=== PATIENT | male | born 1965 | race Caucasian/White ===

== ENCOUNTER → 2022-01-31 | Outpatient (CLI) | payer MEDICARE ==
[2022-01-31 13:32] LABS: African American GFR (CKD) >90 (>60 ml/min/1.73 sqM); Blood Urea Nitrogen 10 mg/dL (9-20); Non-African American GFR(CKD) 81 (>60 ml/min/1.73 sqM)
--- NOTE | 2022-01-31 15:31 | CT ---
EXAMINATION TYPE: CT abdomen pelvis w con DATE OF EXAM: 01/31/2022 COMPARISON: None. HISTORY: Prostate Cancer CT DLP: 1177 mGycm, Automated Exposure Control for Dose Reduction was Utilized. CONTRAST: CT scan of the abdomen and pelvis is performed without oral but with IV Contrast, patient injected wi th 70 mL of Isovue 300. FINDINGS: LUNG BASES: Mild bibasilar linear scarring. LIVER/GB: Somewhat contracted gallbladder. PANCREAS: No significant abnormality is seen. SPLEEN: No significant abnormality is seen. ADRENALS: No significant abnormality is seen. KIDNEYS: Subcentimeter lesion right kidney anteriorly upper and midpole level axial image 27 series 7 is too small to further characterize. Symmetric cortical medullary uptake and excretion is seen with out hydronephrosis seen bilaterally. BOWEL: Suboptimal evaluation without oral contrast. Low-lying cecum into the right pelvis. Normal-elsie earing appendix extends inferiorly from the cecum. No suspicious small or large bowel dilatation. Red undant poorly distended sigmoid colon is noted. PROSTATE/SEMINAL VESICLES: Prostate gland mildly enlarged in size bulging on bladder base. Seminal ve sicles appear within normal limits. No suspicious adjacent adenopathy. Occasional scattered tiny pelv ic phlebolith. Bladder shows mild wall thickening. LYMPH NODES: No greater than 1cm abdominal or pelvic lymph nodes are appreciated. OSSEOUS STRUCTURES: Moderate disc space narrowing with vacuum disc phenomenon at lumbosacral junction sagittal image 62. Osseous structures are demineralized. No suspicious focal lytic or sclerotic lesi ons clearly seen. OTHER: No significant additional abnormality is seen. IMPRESSION: No suspicious mass or adenopathy to suggest metastatic neoplasm.
== END | disposition home or self-care (01) ==
LOC: RADCTMAIN 12:57
PROVIDERS: ATTEND Urology
DX: C61 Malignant neoplasm of prostate (principal)
CPT/HCPCS: 82565; 84520; 74177; Q9967

== ENCOUNTER → 2022-02-19 | Outpatient (CLI) | payer MEDICARE ==
--- NOTE | 2022-02-19 13:27 | NM ---
EXAMINATION TYPE: NM bone scan whole body DATE OF EXAM: 02/19/2022 COMPARISON: CT scan 01/31/2022 HISTORY: Prostate cancer Delayed whole-body scanning was performed following the injection of 25.6 mCi Tc 99m MDP. Images acq uired 4.5 hours post injection. FINDINGS: Soft tissue contamination in the lower pelvis. There are no suspicious areas of increased and reduced uptake to suggest metastases. IMPRESSION: No diagnostic evidence of metastases.
== END | disposition home or self-care (01) ==
LOC: RADNMMAIN 07:59
PROVIDERS: ATTEND Urology
DX: C61 Malignant neoplasm of prostate (principal)
CPT/HCPCS: 78306; A9503

== ENCOUNTER → 2022-06-27 | Outpatient (CLI) | payer MEDICARE | END | disposition home or self-care (01) | LOC: LABWHC1 13:07 | PROVIDERS: ATTEND Radiology Radiation Oncology | DX: C61 Malignant neoplasm of prostate (principal); F17.210 Nicotine dependence, cigarettes, uncomplicated | CPT/HCPCS: 36415; 84153 ==

== ENCOUNTER → 2023-03-28 | Outpatient (CLI) | payer MEDICARE, OTHER | END | disposition home or self-care (01) | LOC: LABWHC1 14:44 | PROVIDERS: ATTEND Radiology Radiation Oncology | DX: C61 Malignant neoplasm of prostate (principal); F17.210 Nicotine dependence, cigarettes, uncomplicated | CPT/HCPCS: 36415; 84153 ==

== ENCOUNTER → 2024-03-31 | Outpatient (CLI) | payer MEDICARE | END | disposition home or self-care (01) | LOC: LABWHC1 10:39 | PROVIDERS: ATTEND Radiology Radiation Oncology | DX: C61 Malignant neoplasm of prostate (principal); F17.210 Nicotine dependence, cigarettes, uncomplicated | CPT/HCPCS: 36415; 84153 ==